=== PATIENT | female | born 1960 | race Caucasian/White ===

== ENCOUNTER 2017-08-25 17:05 | Emergency (ER) | payer SELFPAY ==
[2017-08-25 17:19] VITALS: BP 119/62
--- NOTE | 2017-08-25 17:26 | UC ---
Back Pain HPI - HPI Summary HPI Summary: 57 year old male presents with complains of lower back pain after falling off a tractor. - History of Current Complaint Chief Complaint: UCBackPain Stated Complaint: back injury Time Seen by Provider: 08/25/17 17:24 Hx Obtained From: Patient Hx Last Menstrual Period: menopausal Onset/Duration: Lasting Days Severity Initially: Moderate Severity Currently: Moderate - Allergies/Home Medications Allergies/Adverse Reactions: Allergies Allergy/AdvReac Type Severity Reaction Status Date / Time Iodixanol [From Visipaque] Allergy Intermediate Rash And Verified 06/03/14 12:13 Itching Amoxicillin [From Augmentin] Allergy Rash Verified 06/03/14 12:13 Clavulanic Acid Allergy Rash Verified 06/03/14 12:13 [From Augmentin] Home Medications: Home Medications Amlodipine Besylate [Norvasc 5 mg tab] 5 mg PO DAILY 08/25/17 [History Confirmed 08/25/17] Cholecalciferol [Vitamin D] 08/25/17 [History] Magnesium Citrate (mg Suppleme [Magnesium Citrate] 08/25/17 [History] Vilazodone (NF) [Viibryd (NF)] 08/25/17 [History] PMH/Surg Hx/FS Hx/Imm Hx Previously Healthy: Yes Other History Of: Negative For: Anticoagulant Therapy - Surgical History Surgical History: Yes Surgery Procedure, Year, and Place: 2 C-SECTIONS, D&C - Social History Alcohol Use: Weekly Substance Use Type: None Smoking Status (MU): Never Smoked Tobacco Review of Systems Constitutional: Negative Skin: Negative Eyes: Negative ENT: Negative Respiratory: Negative Cardiovascular: Negative Gastrointestinal: Negative Genitourinary: Negative Motor: Negative Neurovascular: Negative Musculoskeletal: Other: - lower back pain Neurological: Negative Psychological: Negative All Other Systems Reviewed And Are Negative: Yes Physical Exam Triage Information Reviewed: Yes Vital Signs: Initial Vital Signs Temp 36.8 C 08/25/17 17:10 Pulse 78 08/25/17 17:10 Resp 16 08/25/17 17:10 BP 119/62 08/25/17 17:10 Pulse Ox 100 08/25/17 17:10 Vital Signs Reviewed: Yes Eye Exam: Normal ENT Exam: Normal Dental Exam: Normal Neck exam: Normal Neck: Positive: 1 Respiratory Exam: Normal Cardiovascular Exam: Normal Abdominal Exam: Normal Musculoskeletal: Positive: Other: - lower back pain Neurological Exam: Normal Psychological Exam: Normal Skin Exam: Normal Back Pain Course/Dx - Differential Dx/Diagnosis Provider Diagnoses: lower back pain/strain Discharge - Discharge Plan Condition: Stable Disposition: HOME Prescriptions: Methocarbamol TAB* [Robaxin 500 MG TAB*] 500 mg PO TID PRN #30 tab PRN Reason: Spasms - Back Patient Education Materials: Acute Low Back Pain (ED), Back Pain (ED) Referrals: [facility] [place],PT [Medical Doctor] - Amada Jaime MD [Primary Care Provider] -
--- NOTE | 2017-08-25 17:50 | RAD ---
INDICATION: Back pain COMPARISON: None TECHNIQUE: Routine PA, lateral, and oblique imaging was performed . FINDINGS: Bones: There are no acute bony findings. There are no significant osteoarthritic findings. Alignment: Normal Disc spaces: The disc spaces are well-maintained Soft tissues: There are no soft tissue abnormalities. IMPRESSION: THE BONY STRUCTURES ARE NORMAL FOR AGE.
== END 2017-08-25 18:09 | disposition home or self-care (01) ==
LOC: UCEAST 17:05
DX: S39.012A Strain of muscle, fascia and tendon of lower back, initial encounter (principal); Z88.1 Allergy status to other antibiotic agents; W30.89XA Contact with other specified agricultural machinery, initial encounter; Y92.9 Unspecified place or not applicable
CPT/HCPCS: 72110; 99211; G0463

== ENCOUNTER 2017-11-07 10:23 | Emergency (ER) | payer SELFPAY ==
[2017-11-07 10:57] VITALS: BP 114/67
--- NOTE | 2017-11-07 12:33 | UC ---
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 She fell backwards (about 5 feet) and injured her lower back and neck States she was imaged and has been at PT requests another PT consult States she has had neck issues since a prior work related injury about 15 years ago no bowel /bladder dysfunction no paresthesias or weakness some radiation of back pain to right hip for the past week and 1/2 takes tylenol - History of Current Complaint Chief Complaint: UCBackPain Stated Complaint: BACK INJURY Time Seen by Provider: 11/07/17 12:16 Hx Obtained From: Patient Hx Last Menstrual Period: menopausal Onset/Duration: Sudden Onset, Lasting Weeks Timing: Constant Severity Initially: Severe Severity Currently: Mild Pain Intensity: 4 Pain Scale Used: 0-10 Numeric Back Pain: Is Diffuse - across lower back, Radiates To - right lateral hip x 10 days Character: Aching, Throbbing Aggravating Factor(s): Movement, Other - sitting Alleviating Factor(s): Position, OTC Meds Associated Signs And Symptoms: Positive: Negative Related History: Occupational Injury - Allergies/Home Medications Allergies/Adverse Reactions: Allergies Allergy/AdvReac Type Severity Reaction Status Date / Time Iodixanol [From Visipaque] Allergy Intermediate Rash And Verified 11/07/17 10:57 Itching Amoxicillin [From Augmentin] Allergy Rash Verified 11/07/17 10:57 Clavulanic Acid Allergy Rash Verified 11/07/17 10:57 [From Augmentin] PMH/Surg Hx/FS Hx/Imm Hx Cardiovascular History: Hypertension GI/ History: Renal Disease - STAGE 3 RENAL DISEASE Other History Of: Negative For: Anticoagulant Therapy - Surgical History Surgical History: Yes Surgery Procedure, Year, and Place: 2 C-SECTIONS, D&C - Family History Known Family History: Positive: Hypertension - Social History Alcohol Use: Weekly Substance Use Type: None Smoking Status (MU): Never Smoked Tobacco Review of Systems Constitutional: Negative Skin: Negative Eyes: Negative ENT: Negative Respiratory: Negative Cardiovascular: Negative Gastrointestinal: Negative Genitourinary: Negative Motor: Negative Neurovascular: Negative Musculoskeletal: Arthralgia, Myalgia Neurological: Headache Psychological: Negative Is Patient Immunocompromised?: No All Other Systems Reviewed And Are Negative: Yes Physical Exam Triage Information Reviewed: Yes Appearance: No Pain Distress, Well-Nourished, Ill-Appearing Vital Signs: Initial Vital Signs Temp 99.1 F 11/07/17 10:52 Pulse 83 11/07/17 10:52 Resp 18 11/07/17 10:52 BP 114/67 11/07/17 10:52 Pulse Ox 99 11/07/17 10:52 Eyes: Positive: Conjunctiva Clear ENT: Positive: Hearing grossly normal. Negative: Nasal congestion, Nasal drainage, Trismus, Muffled voice, Hoarse voice Neck: Positive: Supple. Negative: Nontender - TENDER R AND L TRAPEZIUS/NO MIDLINE DANA TENDERNESS Respiratory: Positive: Lungs clear, Normal breath sounds, No respiratory distress Cardiovascular: Positive: RRR, No Murmur, Pulses Normal Musculoskeletal: Positive: Strength Intact, ROM Intact, No Edema Neurological: Positive: Alert, Muscle Tone Normal, Other: - (-) SLR, normal gait , brisk DTRs (and symmetric) Psychological Exam: Normal Skin Exam: Normal Back Pain Course/Dx - Differential Dx/Diagnosis Provider Diagnoses: lumbar strain. cervical strain Discharge - Discharge Plan Condition: Stable Disposition: HOME Patient Education Materials: Cervical Strain (ED), Low Back Strain (ED) Referrals: Luis Lopez MD [Medical Doctor] - 2 Weeks (I suggest you see him for your neck) Additional Instructions: resume PT follow up pain clinic Images Front/Back of Body, Lg ([place]): 1 - PAIN 2 - RADIATION OF PAIN
== END 2017-11-07 12:40 | disposition home or self-care (01) ==
LOC: UCEAST 10:23
DX: S39.012D Strain of muscle, fascia and tendon of lower back, subsequent encounter (principal); S16.1XXD Strain of muscle, fascia and tendon at neck level, subsequent encounter; W17.89XD Other fall from one level to another, subsequent encounter; I12.9 Hypertensive chronic kidney disease with stage 1 through stage 4 chronic kidney disease, or unspecified chronic kidney disease; N18.3 Chronic kidney disease, stage 3 (moderate); Z88.1 Allergy status to other antibiotic agents
CPT/HCPCS: 99211; G0463

== ENCOUNTER 2019-08-21 08:14 | Day surgery (SDC) | payer BC ==
--- NOTE | 2019-08-15 12:08 | HP ---
AMENDED REPORT NOW INCLUDES DESIGNATED COSIGNER PREOPERATIVE HISTORY AND PHYSICAL: DATE OF SURGERY/ADMISSION: 08/21/19 DATE OF OFFICE VISIT/ENCOUNTER: 08/06/19 ATTENDING SURGEON: Yolis Suazo MD * (DICTATED BY SAAD ROBERTSON) PROCEDURE: Right wrist carpal tunnel release. HISTORY OF PRESENT ILLNESS: This is a 59-year-old female who complains of numbness and tingling in her right hand that has been ongoing since spring. She has fairly constant numbness and tinging for the past couple of months. Her symptoms are worse at night mainly involving the first 2 fingers of the right hand. She denies any accident or injury. She had an EMG nerve conduction study which showed moderate carpal tunnel syndrome. She would like to proceed with surgical intervention at this time. She has history of decreased kidney function and also is followed for brain aneurysm. We will plan on getting clearance prior to surgery from her crane hoist or lift operator and her neurologist. PAST MEDICAL HISTORY: 1. Hypertension. 2. Anxiety. 3. Decreased kidney function. 4. History of brain aneurysms. PAST SURGICAL HISTORY: 1. x2. 2. D and C. CURRENT MEDICATIONS: 1. Amlodipine besylate 2.5 mg daily. 2. Citrucel 1 tablespoon every day. 3. Duloxetine HCL 30 mg 3 tabs daily. 4. Magnesium citrate 200 mg daily. 5. Multivitamins daily. 6. Stool softener 100 mg daily. 7. Valsartan 160 mg twice daily. 8. Viibryd 20 mg daily. 9. Vitamin D 1000 units daily. 10. Vitamin D3 20 mcg daily. 11. Yuvafem 10 mcg 2 times per week. ALLERGIES: AUGMENTIN causes hives. FAMILY MEDICAL HISTORY: Brain aneurysms. 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 She denies tobacco use and recreational drug use. She drinks alcohol on occasion. REVIEW OF SYSTEMS: Negative for general, cephalic, cardiovascular, respiratory , GI, , other musculoskeletal, integumentary, endocrine, neurologic, and hematologic symptoms. Infectious Disease: Negative for MRSA, hepatitis C, HIV. PHYSICAL EXAMINATION GENERAL: Well-developed, well-nourished 59-year-old female, in no acute distress. VITAL SIGNS: Height 5 feet and 1 inch, weight 155 pounds, pulse rate 78, blood pressure 139/80. HEENT: Normocephalic and atraumatic. Pupils are equal, round, and reactive to light and accommodation. Extraocular movements are intact. Throat is clear. NECK: Supple. No palpable lymph nodes. PULMONARY: Lungs are clear to auscultation bilaterally. No wheezes, rales, or rhonchi. CARDIOVASCULAR: Regular rate and rhythm. S1 and S2. No murmurs, rubs, or gallops. Edema is present in right leg secondary to lymphedema. ABDOMEN: Positive bowel sounds. Soft and nontender. MUSCULOSKELETAL: On exam of her right upper extremity, there is no visible wasting at the thenar eminence. She has mild diminished sensation over the fingertips of the right thumb and index finger. She has full range of motion of the right wrist and all the fingers good capillary refill. 2+ palpable pulse. Positive Phalen's test on the right. NEUROLOGIC: Alert and oriented x3. Cranial nerves II through XII are intact. IMAGING STUDIES: EMG nerve conduction study shows moderate right carpal tunnel syndrome. PLAN: The patient is scheduled to undergo a right wrist carpal tunnel release with with Dr. Suazo on 08/21/19. She will return to the office 10 days postop for followup and suture removal. A prescription for Tylenol No. 3 was e- scribed to the patient's pharmacy for postoperative pain management. We will obtain clearance from the patient's crane hoist or lift operator and neurologist prior to proceeding with surgery. SAAD ROBERTSON [id number]/[facility] #: [id number] [place]
[~2019-08-21 08:14] MED LIST: Buffered Lidocaine 1% SYRIN* 1 ML/SYRINGE INTRADERM ONE; Dexamethasone TAB* 4 MG PO ONE; DiMENhydriNATE IV* 50 MG/ML VIAL IV PUSH PRN; Famotidine IV* 10 MG/ML 2 ML (20 mg) IV ONE; Lactated Ringers 1000 ML Bag* 1,000 ML IV SCH; Naloxone* 0.4 MG/ML 1 ML VIAL IV PRN; Ondansetron ODT TAB* 4 MG PO ONE; PROCHLORPERAZINE INJ 5 MG/ML 2 ML VIAL IV PRN; fentaNYL* 50 MCG/ML 2 ML VIAL (100 MCG VIAL) IV PRN; oxyCODONE/Acetamin 5/325 MG* TAB PO PRN
[2019-08-21] MEDS ORDERED: Dexamethasone TAB* 4 MG ONE (08:38)
[2019-08-21] MEDS ORDERED: Famotidine IV* 10 MG/ML 2 ML (20 mg) ONE (08:38)
[2019-08-21] MEDS ORDERED: Ondansetron ODT TAB* 4 MG ONE (08:38)
[2019-08-21] MEDS ORDERED: fentaNYL* 50 MCG/ML 2 ML VIAL (100 MCG VIAL) ONE (09:10)
[2019-08-21] MEDS ORDERED: KETAMINE HCL* 50 MG/ML 10 ML VIAL ONE (09:11)
[2019-08-21] MEDS ORDERED: Midazolam* 1 MG/ML 5 ML VIAL (5 MG) ONE (09:11)
[2019-08-21] MEDS ORDERED: Lidocaine 1% INJ* 10 MG/ML 30 ML SDV ONE (09:13)
[2019-08-21] MEDS ORDERED: Lidocaine 2% PF * 5 ML VIAL ONE (10:16)
[2019-08-21] MEDS ORDERED: Propofol* 10 MG/ML 20 ML BTL ONE (10:16)
[2019-08-21 11:52] VITALS: BP 123/61
--- NOTE | 2019-08-21 14:38 | OP ---
DATE OF OPERATION: 08/21/19 [facility] DATE OF : 58 SURGEON: Yolis Suazo MD EDITOR GREETING CARD: SAAD Oseguera ANESTHESIA: Local MAC. PRE-OP DIAGNOSIS: Right carpal tunnel syndrome. POST-OP DIAGNOSIS: Right carpal tunnel syndrome. OPERATIVE PROCEDURE: Right carpal tunnel release. INDICATIONS: Ofelia is a 59-year-old female, who has numbness and tingling in the median nerve distribution of her right hand. She presents for right carpal tunnel release. ESTIMATED BLOOD LOSS: Zero. TOURNIQUET TIME: About 10 minutes. DESCRIPTION OF PROCEDURE: The patient was brought to the operating room and was given a sedation anesthetic and a local infiltration of 10 cc of 1% plain lidocaine in the palm of her right hand. Skin of her right hand and forearm was prepped and draped in the usual sterile fashion. The hand and forearm were exsanguinated and the tourniquet elevated to 250 mmHg. A longitudinal incision was made on the palm in line with the ring finger. We dissected through the subcutaneous tissue down to the transverse carpal ligament. The ligament was divided sharply with a knife and then more proximally with the scissors. The nerve was dissected free from the surrounding tissue and there was an area of moderate compression at the mid portion of the ligament. The wound was irrigated and the skin edges were reapproximated with 4-0 nylon suture. The wound was dressed with Xeroform, 4x4, Webril, and an Sal wrap. The patient tolerated the procedure well and was brought to the recovery room in good condition. [id number]/[facility] #: [id number] [place]
== END 2019-08-21 11:28 | disposition home or self-care (01) ==
LOC: OREAST 08:14
PROVIDERS: ATTEND Orthopaedic Surgery
DX: G56.01 Carpal tunnel syndrome, right upper limb (principal); B18.9 Chronic viral hepatitis, unspecified; I12.9 Hypertensive chronic kidney disease with stage 1 through stage 4 chronic kidney disease, or unspecified chronic kidney disease
CPT/HCPCS: A9270-GY; J2250; J2704; J3010; J8540